=== PATIENT | female | born 1995 | race Caucasian/White ===

== ENCOUNTER 2018-12-09 15:13 | Day surgery (SDC) | payer OTHER ==
[~2018-12-09] VITALS: Ht 170.2 cm; Wt 65.0 kg
[2018-12-09] VITALS (7 sets, daily range): BP systolic 106–120; BP diastolic 64–81; PULSE 77–88; TEMP 98–98.4
[2018-12-09] MEDS ORDERED: NORCO2.5 PO (15:53)
[2018-12-09] MEDS ORDERED: TYLENOL 500MG500 MG PO (15:55)
[2018-12-09] MEDS ORDERED: ADVIL200 MG PO (15:56)
--- NOTE | 2018-12-09 19:30 | NUR ---
Pt. sitting up in bed at this time. Pt. is A&OX3, assessment complete. INT to lt. wrist patent. Pt. vitals stable. Pt. denies pain or other needs at this time.
--- NOTE | 2018-12-09 20:50 | NUR ---
Pt. has met discharge criteria. Discharge paperwork reviewed with pt. Pt. voices understanding. INT to lt. wrist discontinued. Pt. dressed and escorted out by BRANDON Doyle. by wheelchair.
== END 2018-12-09 21:00 | disposition home or self-care (01) ==
LOC: SDCO 15:13 → SURG 19:00 → SDCO 21:00
DX: N13.2 Hydronephrosis with renal and ureteral calculous obstruction (principal); Z84.1 Family history of disorders of kidney and ureter
CPT/HCPCS: OP; C1769; C2617; J0690; J1100; J2250; J2405; J2704; J3010; J7120; Q9967

== ENCOUNTER 2020-04-24 10:57 | Observation (INO) | payer OTHER ==
[~2020-04-24] VITALS: Ht 170.2 cm; Wt 69.2 kg
[~2020-04-24 10:57] MED LIST: ADVIL200 MG PO; NORCO2.5 PO; TYLENOL 500MG500 MG PO
--- NOTE | 2020-04-24 12:20 | NUR ---
PATIENT GOING DOWN TO OR. CONSENT ON CHART. IV FLUIDS IV GRAVITY.
[2020-04-24] MEDS ORDERED: PYRIDIUM 100MG100 MG PO (13:20)
[2020-04-24 14:00] VITALS: BP 122/80; PULSE 80; TEMP 97.9
--- NOTE | 2020-04-24 14:00 | NUR ---
PATIENT BACK TO THE UNIT FROM OR. VSS. AMBULATED TO BATHROOM AND URINATED WITH TRACE AMOUNT OF BLOOD NOTED. PATIENT COMPLAINS OF SMALL AMOUNT OF FLANK DISCOMFORT AND SOME MINOR NAUSEA WITHOUT VOMITTING AT THIS TIME. HEAD TO TOE ASSESSMENT WNL. PATIENT WILL DISCHARGE WHEN CRITERIA IS MET. IS AT BEDSIDE. BED LEFT AT LOWEST POSITION AND CALL LIGHT WITHIN REACH.
[2020-04-24 14:02] VITALS: TEMP 98.3
[2020-04-24 14:15] VITALS: BP 113/69; PULSE 64
[2020-04-24 14:30] VITALS: BP 107/70; PULSE 68
[2020-04-24 14:45] VITALS: BP 107/72; PULSE 83
--- NOTE | 2020-04-24 16:00 | NUR ---
PATIENT DISCHARGING HOME VIA AMBULATORY TO PERSONAL VEHICLE WITH . GAVE DISCHARGE INSTRUCTIONS, CALLED IN SCRIPT TO [facility] [place] DUE TO [facility] BEING CLOSED ON THE WEEKENDS, AND DISCUSSED PATIENT CALLING FOR F/U APT. ANSWERED QUESTIONS/CONCERNS. STUDENT NURSE DC'D IV, COVERED SITE WITH VANESSA. PATIENT DISCHARGED.
== END 2020-04-24 16:00 | disposition home or self-care (01) ==
LOC: SURG 10:57
PROVIDERS: ADMIT Urology
DX: N20.1 Calculus of ureter (principal); F17.210 Nicotine dependence, cigarettes, uncomplicated; Z79.891 Long term (current) use of opiate analgesic; Z79.899 Other long term (current) drug therapy
CPT/HCPCS: C1769; C1894; C2617; J0690; J1100; J2704; J3010; J7030; Q9967

== ENCOUNTER 2020-11-03 10:24 | Day surgery (SDC) | payer OTHER ==
[~2020-11-03] VITALS: Ht 170.2 cm; Wt 65.9 kg
[~2020-11-03 10:24] MED LIST changes: +PYRIDIUM 100MG100 MG PO
[2020-11-03 10:47] VITALS: BP 110/70; PULSE 86; TEMP 98.7
[2020-11-03] MEDS ORDERED: HCTZ 25MG TAB25 MG PO (11:13)
[2020-11-03] MEDS ORDERED: BIRTH CONTROL PO (11:13)
[2020-11-03 13:29] VITALS: TEMP 99.4
[2020-11-03 13:40] VITALS: BP 105/69; PULSE 67
--- NOTE | 2020-11-03 13:40 | NUR ---
PATIENT IS ON CART FROM PACU. IS PRESENT IN ROOM. TOLERATED AMBULATION TO THE BATHROOM, ESCORTED BY OLIVERIO JOHNSON. AND WAS ABLE TO VOID. REQUESTED JUICE AND TOAST. VITAL SIGNS STARTED. WILL CONTINUE TO MONITOR.
[2020-11-03 13:55] VITALS: BP 111/64; PULSE 70
--- NOTE | 2020-11-03 13:55 | NUR ---
PATIENT TOLERATED FOOD AND BEVERAGE VERY WELL. STATES NO N/V AND WILL BE HAVING CHICK-FUL-A LATER. VITAL SIGNS OBTAINED. WILL CONTINUE TO MONITOR.
[2020-11-03 14:10] VITALS: BP 109/61; PULSE 68
--- NOTE | 2020-11-03 14:10 | NUR ---
PATIENT STATES DESIRE TO BE DISCHARGED TO [facility]. VITAL SIGNS OBTAINED. PATIENT HAS MET DISCHARGE REQURIEMENTS AND HAS STABLE/ADEQUATE VITAL SIGNS. IV DISCONTINUED AND PRESSURE DRESSING PLACED. DISCHARGE INSTRUCTIONS GIVEN. PATIENT VERBALIZED UNDERSTANDING OF DISCHARGE MATERIAL.
--- NOTE | 2020-11-03 15:04 | NUR ---
PATIENT ESCORTED TO HOSPITAL ENTRENCE. SHE STATED DISIRE TO WALK INSTEAD OF WHEELCHAIR. IS PRESENT. PATIENT LEFT FACILITY AT 1445.
== END 2020-11-03 14:45 | disposition home or self-care (01) ==
LOC: SDCO 10:24
DX: N20.2 Calculus of kidney with calculus of ureter (principal); R31.29 Other microscopic hematuria; R82.81 Pyuria; F17.210 Nicotine dependence, cigarettes, uncomplicated; Z20.822 Contact with and (suspected) exposure to COVID-19; Z87.442 Personal history of urinary calculi; Z79.899 Other long term (current) drug therapy; Z79.891 Long term (current) use of opiate analgesic
CPT/HCPCS: C1769; C1894; C2617; J0690; J1100; J1885; J2405; J2704; J3010; J7120; Q9967